=== PATIENT | male | born 1955 | race Hispanic/Latino ===

== ENCOUNTER 2022-01-23 06:56 | Emergency (ER) | payer OTHER, MEDICARE ==
[~2022-01-23] VITALS: Ht 180.3 cm; Wt 91.6 kg
[2022-01-23] MEDS ORDERED: JARDIANCE10 MG PO (07:08)
[2022-01-23] MEDS ORDERED: METFORMIN HCL500 M2 PO (07:08)
== END 2022-01-23 08:10 | disposition home or self-care (01) ==
LOC: ED 06:56
DX: S89.302A Unspecified physeal fracture of lower end of left fibula, initial encounter for closed fracture (principal); S01.01XA Laceration without foreign body of scalp, initial encounter; Z79.84 Long term (current) use of oral hypoglycemic drugs; Z79.899 Other long term (current) drug therapy; X50.1XXA Overexertion from prolonged static or awkward postures, initial encounter; Z23 Encounter for immunization
CPT/HCPCS: 73610; 90471; 90715; 99283-25